=== PATIENT | female | born 1985 | race Caucasian/White ===

== ENCOUNTER 2019-07-13 05:41 | Inpatient (IN) | payer BC ==
[2019-07-13] MEDS ORDERED: cefOXitin 2 GM in Sodium Chloride 0.9% 50 ML IV ONE ×2 (06:34→08:00)
[2019-07-13] MEDS ORDERED: Celecoxib 200 MG Cap PO ONE ×2 (06:35→07:30)
[2019-07-13] MEDS ORDERED: Acetaminophen 325 MG Tab PO ONE ×2 (06:36→07:30)
[2019-07-13] MEDS ORDERED: Dextrose 5%-Lactated Ringers 1,000 ML IV SCH (07:00)
[2019-07-13] MEDS ORDERED: Succinylcholine 200 MG/10 ML MDV ONE (07:27)
[2019-07-13] MEDS ORDERED: Propofol 200 MG/20 ML SDV ONE (07:27)
[2019-07-13] MEDS ORDERED: Dexamethasone 4 MG/ML SDV ONE (07:27)
[2019-07-13] MEDS ORDERED: Neostigmine Methylsulfate 1 MG/ML 5 ML Syringe ONE (07:27)
[2019-07-13] MEDS ORDERED: Glycopyrrolate 0.2 MG/ML 5 ML MDV ONE (07:27)
[2019-07-13] MEDS ORDERED: fentaNYL 250 MCG/5 ML SDV ONE (07:27)
[2019-07-13] MEDS ORDERED: Meropenem 500 MG SDV ONE (07:27)
[2019-07-13] MEDS ORDERED: Bupivacaine 0.5%/EPINEPHrine 1:200,000 50 ML MDV ONE (07:27)
[2019-07-13] MEDS ORDERED: Rocuronium 50 MG/5 ML Vial ONE (07:27)
[2019-07-13] MEDS ORDERED: Ondansetron 4 MG/2 ML SDV ONE (07:27)
[2019-07-13] MEDS ORDERED: Lactated Ringers 1,000 ML ONE (07:29)
[2019-07-13] MEDS ORDERED: Acetaminophen 500 MG Tab PO ONE (07:30)
[2019-07-13] MEDS ORDERED: Ketamine 50 MG in Sodium Chloride 0.9% 49.5 ML IV SCH (08:00)
[2019-07-13] MEDS ORDERED: Ropivacaine 38 ML, dexAMETHasone 8 MG, EPINEPHrine 0.4 MG, Sodium Chloride 0.9% 39.6 ML NERVRT SCH ×4 (08:00)
[2019-07-13] MEDS ORDERED: Ketamine 500 MG/5 ML MDV IV SCH (08:00)
[2019-07-13] MEDS ORDERED: Magnesium Sulfate 2.2 GM in Sodium Chloride 0.9% 100 ML IV SCH (08:00)
[2019-07-13] MEDS ORDERED: Magnesium Sulfate 4.8 GM in Sodium Chloride 0.9% 250 ML IV ONE (08:00)
[2019-07-13] MEDS ORDERED: Lidocaine 1% with EPINEPHrine 1:100,000 50 ML MDV ONE (08:37)
[2019-07-13] MEDS ORDERED: Bupivacaine 0.5% 50 ML MDV ONE (08:37)
[2019-07-13] MEDS ORDERED: hydrOXYzine HCL 100 MG/2 ML SDV IM ONE (09:27)
[2019-07-13] MEDS ORDERED: HYDROmorphone 0.5 MG/0.5 ML Syringe IM ONE (09:42)
[2019-07-13] MEDS ORDERED: diphenhydrAMINE 50 MG/ML SDV IVPUSH PRN ×2 (10:08→11:17)
[2019-07-13] MEDS ORDERED: Ondansetron 4 MG/2 ML SDV IVPUSH PRN ×2 (10:08→11:17)
[2019-07-13] MEDS ORDERED: Naloxone 0.4 MG/ML SDV IVPUSH PRN (10:08)
[2019-07-13] MEDS ORDERED: diphenhydrAMINE 25 MG Cap PO PRN (10:08)
[2019-07-13] MEDS ORDERED: HYDROmorphone/Normal Saline 15 MG/30 ML PCA IV SCH (10:15)
[2019-07-13] MEDS ORDERED: Scopolamine 1.5 MG Transdermal Patch TOP SCH (11:00)
[2019-07-13] MEDS ORDERED: Naloxone 0.4 MG/ML SDV IV PRN (11:11)
[2019-07-13] MEDS ORDERED: Acetaminophen 500 MG Tab PO PRN (11:17)
[2019-07-13] MEDS ORDERED: hydrOXYzine HCL 100 MG/2 ML SDV IM PRN (11:17)
[2019-07-13] MEDS ORDERED: oxyCODONE 5 MG Tab PO PRN (11:17)
[2019-07-13] MEDS ORDERED: Cyclobenzaprine 10 MG Tab PO PRN (11:17)
[2019-07-13] MEDS ORDERED: Metoclopramide 10 MG/2 ML SDV IVPUSH PRN (11:17)
[2019-07-13] MEDS ORDERED: Labetalol 20 MG/4 ML Syringe IVPUSH PRN (11:17)
[2019-07-13] MEDS: SCOPOLAMINE PATCH CHECK TOP SCH (11:49)
[2019-07-13] MEDS ORDERED: Pantoprazole 40 MG Vial IVPUSH SCH (12:00)
[2019-07-13] MEDS: cefOXitin 2 GM in Premix Bag 1 BAG IV SCH ×2 (13:02→19:37)
[2019-07-13] MEDS: Acetaminophen 500 MG Tab PO SCH ×2 (13:02→21:24)
[2019-07-13] MEDS: Heparin Sodium 5,000 Units/ML Vial SUBCUT SCH (15:18)
[2019-07-13] MEDS ORDERED: MVI, Adult with Vitamin K 10 ML, Thiamine 200 MG, Chromium/Copper/Mang/Selen/Zn 1 ML in... IV SCH ×4 (16:00)
[2019-07-13] MEDS: Dextrose 5%-Lactated Ringers 1,000 ML IV SCH (21:33)
[2019-07-14] MEDS: cefOXitin 2 GM in Premix Bag 1 BAG IV SCH (02:21)
[2019-07-14] MEDS ORDERED: Iopamidol 612 MG/ML 50 ML SDV PO STA (02:34)
--- NOTE | 2019-07-14 03:18 | CRLCR ---
Indication: Christine-en-Y with small-bowel release Technique: KUB 2 view Comparison: CT abdomen pelvis July 12, 2019 Findings/Impression: : Two frontal views of the abdomen demonstrate midline laparotomy skin dianne. Oral contrast is seen within the proximal stomach and duodenum. Oral contrast also seen in the distal colon. No evidence for extravasation of oral contrast material on the static images. Few loops of mildly dilated small bowel in the mid abdomen. Surgical clips in right upper quadrant. Dictated by Antonieta Marcelo MD @ Jul 14 2019 3:13AM Signed by Dr. Antonieta Marcelo @ Jul 14 2019 3:15AM
[2019-07-14] MEDS: Heparin Sodium 5,000 Units/ML Vial SUBCUT SCH (04:53)
[2019-07-14] MEDS: Dextrose 5%-Lactated Ringers 1,000 ML IV SCH (04:56)
[2019-07-14] MEDS: Acetaminophen 500 MG Tab PO SCH (05:00)
[2019-07-14] MEDS ORDERED: Celecoxib 200 MG Cap PO SCH (09:00)
[2019-07-14] MEDS: HYDROmorphone 2 MG Tab PO PRN ×2 (09:12→13:24)
[2019-07-14] MEDS: SCOPOLAMINE PATCH CHECK TOP SCH (09:14)
[2019-07-14 11:15] VITALS: BP 108/64; PULSE 64
[2019-07-14] MEDS ORDERED: Pantoprazole 40 MG Tab.CR PO SCH (13:00)
--- NOTE | 2019-07-14 13:02 | DISCH ---
FINAL DIAGNOSES: 1. Partial small bowel obstruction associated with focal small bowel volvulus and probable chronic intussusception at jejunojejunostomy. 2. Elongated peritoneal lesion. SECONDARY DIAGNOSES: 1. Bariatric surgery status. 2. Elevated liver function tests of uncertain etiology. 3. History of recurrent pancreatitis. 4. History of depression and anxiety. OPERATIVE PROCEDURES: Done on 07/13/2019, exploratory laparotomy with lysis of adhesions: 1. Reduction of small bowel volvulus and closure of internal hernia. 2. Small bowel resection. 3. Secondary enteroenterostomy for re-establishment of Christine-en-Y small bowel anatomy. 4. Excision of elongated peritoneal lesion. 5. Placement of Interceed mesh to limit adhesion formation between pelvic and abdominal wall and underlying viscera. SUMMARY: This is a 34-year-old, status post Christine-en-Y gastric bypass presenting with a picture of partial small bowel obstruction. At the time of exploration, the patient was noted to have a focal volvulus secondary to the adhesions as well as boggy jejunojejunostomy consistent with some probable chronic intussusception at that level. The adhesions were lysed and the patient was also noted to have elongated peritoneal nodule measuring around 7 cm, likely some scar that was excised as well. The enteroenterostomy was resected and the small bowel anatomy re-established without significant change in her limb lengths. Postoperatively, the patient initially had quite a bit in the way of discomfort. This now appears to be well controlled and she will be discharged home. She will be sent home on her usual medications plus Dilaudid 2 to 4 mg p.o. q.4 hours p.r.n. pain #40 as well as Tylenol 650 mg p.o. q.6 hours p.r.n. pain. Her liver function tests both at the clinic on Monday as well as yesterday, which was Monday were somewhat elevated. They do appear to be improving this morning with the AST yesterday being 216, today 57; ALT yesterday 295, and today 211; and alkaline phosphatase yesterday was 181, and today 146. Total bilirubin has been normal on both days being 0.5 and 0.3 respectively. The patient will be sent home with a step 3 diet and to remain on that until her 1st appointment, which will be with Daxa Tavares at [facility] on 07/22/2019. She will have a CMP drawn at that time to evaluate the liver function tests status.
[2019-07-15] MEDS ORDERED: Cyanocobalamin (Vitamin B12) 1,000 MCG/ML SDV IM ONE (09:00)
--- NOTE | 2019-07-21 10:37 | OR ---
DATE OF PROCEDURE: 07/13/2019 SURGEON: See Dong MD PREOPERATIVE DIAGNOSIS: Partial small bowel obstruction. POSTOPERATIVE DIAGNOSES: 1. Partial small bowel obstruction associated with focal small bowel volvulus and probable chronic intussusception of jejunojejunostomy. 2. Elongated peritoneal lesion extending from the right lower quadrant anterior abdominal wall downward toward the underlying small bowel mesentery. OPERATIVE PROCEDURES: Exploratory laparotomy with lysis of adhesions and: 1. Reduction of small bowel volvulus and closure of internal hernia (46867). 2. Small bowel resection (18209). 3. Secondary enteroenterostomy for re-establishment of Christine-en-Y small bowel anatomy (74781). 4. Excision of elongated peritoneal lesion (76329). 5. Placement of Interceed mesh to limit recurrent adhesion formation between pelvic and abdominal wall and underlying viscera (92352). ANESTHESIA: General. INDICATIONS FOR PROCEDURE: This is a 34-year-old status post previous Christine-en-Y gastric bypass presenting with a picture of partial small bowel obstruction. The plan is to proceed with an exploratory laparotomy with reduction of any volvulus and small bowel resection as necessary. Potential risks including bleeding, infection, injury to underlying viscera, leaks from various GI tract closures, possible recurrence of the problem over time were all reviewed, and the patient wishes to proceed. DETAILS OF PROCEDURE: The patient was taken to the operating room after general endotracheal anesthesia was induced. A Astorga catheter was inserted which was removed at the end of the procedure and the abdomen prepped and draped. A midline incision from the umbilicus roughly a handsbreadth toward the xiphoid was made and carried down through the full-thickness abdominal wall. Upon entering the peritoneal cavity, the patient was noted to initially have area of small bowel volvulus with rotation of the jejunojejunostomy and portions of the common and Christine limb along with the biliopancreatic limb in a plane underneath the Christine limb when it passed upward toward the gastric pouch. This was reduced and at that point the small bowel was examined. It was noted that the jejunojejunostomy was quite dilated and boggy and this would be most likely related to some recurrent and chronic intussusception at that level. At that point, the decision was made to resect that anastomosis. The 3 components of the small bowel were then divided with the ADELA stapler as was the underlying mesentery and the small bowel specimen was delivered from the field. Initial small bowel continuity was established with anastomosis between the end of what had been the Christine limb to the beginning of the common limb with a [id number] enteroenterostomy using an Endo-ADELA 60 mm stapler. The common opening was closed transversely and the angles were anastomosed, mesenteric defect approximated with some 3-0 Vicryl stitch. Roughly 20 cm distal to that point, then the small bowel Christine-en-Y anatomy was re-established with an anastomosis between what had been the biliopancreatic limb and the small bowel roughly 20 cm distal to the initial anastomosis. This was accomplished with the same sequence of staplers. The angles anastomosed in this case were reinforced with some 3-0 Vicryl stitch, and to provide some permanency, the mesenteric defect was closed with a 2-0 silk stitch. The mesenteric defect underneath the Christine limb was also then closed off with a running 2-0 silk stitch. One additional finding was that of an elongated peritoneal lesion extending from the anterior abdominal wall downward toward the underlying small bowel mesentery. This was excised and measured 7 cm in total length. With no further problems noted, the abdomen was irrigated with antibiotic-containing saline solution. Interceed mesh was then placed underneath the incision and from there downward toward the pelvis to limit recurrent adhesion formation between those surfaces and the underlying viscera. The midline fascia was then approximated with #2 Vicryl stitch, subcutaneous tissue with 2 layers of 3-0 and 4-0 Vicryl stitch deep and dianne for the skin. The fascia had been anesthetized with 0.5% Marcaine mixed with lidocaine and bilateral transversus abdominis plane blocks were also then placed. The patient was taken to the recovery room in satisfactory condition. There were no evident complications. See Dong MD /[id number]
== END 2019-07-14 13:40 | disposition home or self-care (01) | DRG 220 ==
LOC: JP.SDSSCHI 05:41 → JP.SDS 05:41 → EDSTATUS 08:00 → JP.MS 09:15
PROVIDERS: ADMIT Surgery; ATTEND Surgery
PROC: 0D160ZA Bypass Stomach to Jejunum, Open Approach (ICD-10-PCS; principal; 2019-07-13)
PROC: 0DS80ZZ Reposition Small Intestine, Open Approach (ICD-10-PCS; 2019-07-13)
PROC: 0DB80ZZ Excision of Small Intestine, Open Approach (ICD-10-PCS; 2019-07-13)
PROC: 0DBW0ZZ Excision of Peritoneum, Open Approach (ICD-10-PCS; 2019-07-13)
PROC: 3E0M05Z Introduction of Adhesion Barrier into Peritoneal Cavity, Open Approach (ICD-10-PCS; 2019-07-13)
DX: K95.89 Other complications of other bariatric procedure (principal); K56.2 Volvulus; K66.0 Peritoneal adhesions (postprocedural) (postinfection); R74.8 Abnormal levels of other serum enzymes; K86.1 Other chronic pancreatitis; F41.9 Anxiety disorder, unspecified; F32.9 Major depressive disorder, single episode, unspecified; K56.1 Intussusception; Y83.8 Other surgical procedures as the cause of abnormal reaction of the patient, or of later complication, without mention of misadventure at the time of the procedure; R22.2 Localized swelling, mass and lump, trunk; Z98.84 Bariatric surgery status
CPT/HCPCS: 36415; 74240; 80053; 82150; 83690; 85027; 88304; 88307; 94762; A9270-GY; C9113; J0171; J0330; J0694; J1100; J1170; J1644; J2020; J2185; J2405; J2704; J2710; J2765; J2795; J3010; J3410; J3411; J3475; J3490; J7050; J7120; J7121; Q9967

== ENCOUNTER 2019-11-05 05:33 | Inpatient (IN) | payer BC ==
[~2019-11-05 05:33] MED LIST: Acetaminophen 500 MG Tab PO ONE; Celecoxib 200 MG Cap PO ONE; Gabapentin 300 MG Cap PO ONE; Scopolamine 1.5 MG Transdermal Patch TRDERM SCH
[2019-11-05] MEDS ORDERED: Dextrose 5%-Lactated Ringers 1,000 ML IV SCH (06:00)
[2019-11-05] MEDS ORDERED: Meropenem 500 MG SDV ONE (06:30)
[2019-11-05] MEDS ORDERED: Bupivacaine 0.5% 50 ML MDV ONE (06:30)
[2019-11-05] MEDS ORDERED: Lidocaine 1% with EPINEPHrine 1:100,000 50 ML MDV ONE (06:30)
[2019-11-05] MEDS ORDERED: fentaNYL 250 MCG/5 ML SDV ONE (07:09)
[2019-11-05] MEDS ORDERED: Glycopyrrolate 0.2 MG/ML 5 ML MDV ONE (07:09)
[2019-11-05] MEDS ORDERED: Propofol 200 MG/20 ML SDV ONE (07:09)
[2019-11-05] MEDS ORDERED: Rocuronium 50 MG/5 ML Vial ONE (07:09)
[2019-11-05] MEDS ORDERED: Ondansetron 4 MG/2 ML SDV ONE (07:09)
[2019-11-05] MEDS ORDERED: Neostigmine Methylsulfate 1 MG/ML 5 ML Syringe ONE (07:09)
[2019-11-05] MEDS ORDERED: Dexamethasone 4 MG/ML SDV ONE (07:09)
[2019-11-05] MEDS ORDERED: ceFAZolin 2 GM in Premix Bag 1 BAG IV ONE (07:15)
[2019-11-05] MEDS ORDERED: Ketamine 500 MG/5 ML MDV IV SCH (07:30)
[2019-11-05] MEDS ORDERED: Ketamine 50 MG in Sodium Chloride 0.9% 49.5 ML IV SCH (07:30)
[2019-11-05] MEDS ORDERED: diphenhydrAMINE 50 MG/ML SDV IVPUSH PRN (08:04)
[2019-11-05] MEDS ORDERED: Ondansetron 4 MG/2 ML SDV IVPUSH PRN ×2 (08:04→10:28)
[2019-11-05] MEDS ORDERED: Naloxone 0.4 MG/ML SDV IVPUSH PRN (08:04)
[2019-11-05] MEDS ORDERED: diphenhydrAMINE 25 MG Cap PO PRN (08:04)
[2019-11-05] MEDS ORDERED: Naloxone 0.4 MG/ML SDV IV PRN (08:07)
[2019-11-05] MEDS: HYDROmorphone/Normal Saline 15 MG/30 ML PCA IV PRN (08:15)
[2019-11-05] MEDS ORDERED: hydrOXYzine HCL 100 MG/2 ML SDV IM ONE (09:17)
[2019-11-05] MEDS ORDERED: hydrOXYzine HCL 100 MG/2 ML SDV IM PRN (10:28)
[2019-11-05] MEDS: SCOPOLAMINE PATCH CHECK TOP SCH (11:27)
[2019-11-05] MEDS: Dextrose 5%-Lactated Ringers 1,000 ML IV SCH ×3 (11:27→21:26)
[2019-11-05] MEDS: Sodium Ferric Gluconate Cmplex 250 MG in Sodium Chloride 0.9% 100 ML IV SCH (11:44)
[2019-11-05] MEDS: Cyclobenzaprine 10 MG Tab PO PRN (11:55)
[2019-11-05] MEDS: ceFAZolin 2 GM in Premix Bag 1 BAG IV SCH ×2 (14:16→21:26)
[2019-11-05] MEDS: Acetaminophen 325 MG Tab PO SCH ×2 (14:42→21:25)
[2019-11-06] MEDS: Acetaminophen 325 MG Tab PO SCH ×4 (02:12→19:43)
[2019-11-06] MEDS: ceFAZolin 2 GM in Premix Bag 1 BAG IV SCH (06:15)
[2019-11-06] MEDS: Dextrose 5%-Lactated Ringers 1,000 ML IV SCH ×2 (06:15→15:11)
[2019-11-06] MEDS ORDERED: Ondansetron 4 MG Tab.DIS PO PRN (07:40)
[2019-11-06] MEDS: Cyclobenzaprine 10 MG Tab PO PRN ×2 (07:43→15:18)
[2019-11-06] MEDS: SCOPOLAMINE PATCH CHECK TOP SCH (08:39)
[2019-11-06] MEDS: Sodium Ferric Gluconate Cmplex 250 MG in Sodium Chloride 0.9% 100 ML IV SCH (10:51)
[2019-11-06] MEDS: HYDROmorphone/Normal Saline 15 MG/30 ML PCA IV PRN (13:56)
[2019-11-06] MEDS ORDERED: methylPREDNISolone Sodium Succinate 125 MG/2 ML SDV IVPUSH PRN (14:00)
--- NOTE | 2019-11-06 15:24 | PN ---
DATE OF SERVICE: 11/06/2019 SUBJECTIVE: Nazia is postoperative day #1. She states her pain is controlled. She is having some muscle spasms. Up, ambulating. Vital signs have been stable. Oral intake 260. Urine output 1650 prior to Astorga catheter being removed. She has not voided since the catheter has been removed early a.m. REVIEW OF SYSTEMS: Remainder of review of systems negative for any pertinent positives and negatives. OBJECTIVE: GENERAL: Nazia Newman is a pleasant 34-year-old female, alert and orientated. Color pale. VITAL SIGNS: TPR at 0623, 98.7; 72; 16; blood pressure 116/65. HEENT: Negative. NECK: Supple. HEART: Regular rate and rhythm. LUNGS: Clear. ABDOMEN: Dressings dry and intact. Abdominal binder is on. EXTREMITIES: Without peripheral edema. ASSESSMENT: 1. Exploratory laparotomy with lysis of adhesions. 2. Repair of recurrent incarcerated incisional hernia with mesh. 3. Repair of umbilical hernia with mesh. 4. Reduction of small bowel volvulus and closure of internal hernia. 5. Placement of Vicryl mesh. POSTOPERATIVE DIAGNOSIS: 1. Incarcerated incisional hernia. 2. Non incarcerated umbilical hernia. 3. Focal small bowel volvulus. 4. Date of surgery: 11/05/2019. Surgeon: See Dong MD. PLAN: 1. Decrease IV of D5LR to 100 mL per hour. 2. May shower. 3. Step 3 gastric bypass diet. 4. Flexeril 10 mg q.6 hours p.r.n. muscle spasm. 5. Continue AWS DEVELOPER and continuous pulse ox for pain management today. 6. We will evaluate p.r.n. or in a.m. Daxa Tavares PA-C /[id number]
[2019-11-07] MEDS: Acetaminophen 325 MG Tab PO SCH ×4 (01:16→20:44)
[2019-11-07] MEDS: Dextrose 5%-Lactated Ringers 1,000 ML IV SCH (01:16)
[2019-11-07] MEDS: Docusate Sodium 100 MG Cap PO SCH ×2 (08:40→20:44)
[2019-11-07] MEDS: Bisacodyl 5 MG Tab PO SCH ×2 (08:41→20:44)
[2019-11-07] MEDS: Cyclobenzaprine 10 MG Tab PO PRN ×2 (08:41→18:25)
[2019-11-07] MEDS: SCOPOLAMINE PATCH CHECK TOP SCH (09:37)
[2019-11-07] MEDS: HYDROmorphone 2 MG Tab PO PRN ×3 (10:32→20:43)
--- NOTE | 2019-11-07 13:43 | PN ---
DATE OF SERVICE: 11/07/2019 SUBJECTIVE: Nazia is postoperative day 2. She reports that her pain is controlled. She has been up, ambulating, feeling better today. Vital signs have been stable. Oral intake adequate at 900 and urine output was 4000. She is voiding without difficulty after the Astorga catheter was removed yesterday morning. REVIEW OF SYSTEMS: Remainder of review of systems negative for any pertinent positives and negatives. OBJECTIVE: GENERAL: Nazia Newman is a pleasant 34-year-old female. She is alert and orientated. VITAL SIGNS: TPR at 0723 is 98.8, 79, 16. Blood pressure is 99/52. HEENT: Negative. NECK: Supple. HEART: Regular rate and rhythm. LUNGS: Clear. ABDOMEN: Dressings dry and intact. Aquacel dressing is on. She has a pressure dressing over former hernia site. EXTREMITIES: Without peripheral edema. ASSESSMENT: 1. Exploratory laparotomy with lysis of adhesions. 2. Repair of recurrent incarcerated incisional hernia with mesh. 3. Repair of umbilical hernia with mesh. 4. Reduction of small bowel volvulus and closure of internal hernia. 5. Placement of Vicryl mesh. POSTOPERATIVE DIAGNOSES: 1. Incarcerated incisional hernia. 2. Non-incarcerated umbilical hernia. 3. Focal small bowel volvulus. Date of surgery 11/05/2019. Surgeon: See Dong MD. PLAN: 1. Discontinue DOCTOR OF VETERINARY MEDICINE, continuous pulse ox. 2. Dilaudid 2 mg 1 to 2 every 4 hours p.r.n. pain. 3. Saline lock IV. 4. Colace 100 mg p.o. b.i.d. 5. Dulcolax 10 mg tabs 1 b.i.d. scheduled until patient has bowel movement, then discontinue. 6. Continue good pulmonary toilet. 7. Plan discharge in aBrit Tavares PA-C /[id number]
[2019-11-08] MEDS: HYDROmorphone 2 MG Tab PO PRN ×2 (00:47→06:10)
[2019-11-08] MEDS: Acetaminophen 325 MG Tab PO SCH ×2 (02:42→07:21)
[2019-11-08] MEDS: Cyclobenzaprine 10 MG Tab PO PRN (03:33)
[2019-11-08 07:30] VITALS: BP 129/71; PULSE 76
[2019-11-08] MEDS ORDERED: Magnesium Hydroxide 400 MG/5 ML Susp 30 ML Cup PO PRN (09:00)
[2019-11-08] MEDS: Bisacodyl 5 MG Tab PO SCH (09:25)
[2019-11-08] MEDS: Docusate Sodium 100 MG Cap PO SCH (09:25)
--- NOTE | 2019-11-08 12:00 | DISCH ---
ADMISSION DIAGNOSES: 1. Large incisional hernia. 2. Single-port Christine-en-Y gastric bypass surgery. 3. Unspecified surgical malabsorption. 4. B12 deficiency. DISCHARGE DIAGNOSES: 1. Exploratory laparotomy with: a. Lysis of adhesions. b. Repair of recurrent incarcerated incisional hernia with mesh. c. Repair of umbilical hernia with mesh. d. Reduction of small bowel volvulus and closure of internal hernia. e. Replacement of Vicryl mesh. POSTOPERATIVE DIAGNOSES: 1. Incarcerated incisional hernia. 2. Non-incarcerated umbilical hernia. 3. Focal small bowel volvulus. Date of surgery: 11/05/2019. Surgeon: See Dong MD. HISTORY: Nazia Newman is a 34-year-old female with a large incisional hernia. After preoperative evaluation and discussion of possible risks and possible complications, she wished to proceed with surgical procedure. HOSPITAL COURSE: Nazia had her surgery on 11/05/2019. She had no operative complications. On postop day #1, she was started on step 3 gastric bypass diet. IV was decreased to 100 mL per hour and on postop day #2, she was started on oral pain medication, was able to shower, and was started on bowel stimulation and oral pain medication. On postop day #3, activity was good. Vital signs were stable. Afebrile. Pain was well managed. Activity was good and able to be discharged to home. PHYSICAL EXAMINATION: GENERAL: Nazia Newman is a pleasant 34-year-old female, height is 5 feet 7 inches, weight is 162 pounds. VITAL SIGNS: TPR at 0726, 97.8; 76; 18; blood pressure 129/71. HEENT: Negative. NECK: Supple. HEART: Regular rate and rhythm. LUNGS: Clear. ABDOMEN: Aquacel dressing is on. Abdominal binder is on. EXTREMITIES: Without peripheral edema. DISPOSITION: Discharged to home. CONDITION: Stable and improving. FOLLOWUP APPOINTMENT: Daxa Tavares PA-C, on 11/14/2019 at 9:15 a.m. HOME MEDICATIONS: 1. Dilaudid 2 to 4 mg every 4 hours p.r.n. pain #42. 2. Flexeril 10 mg q.6 hours p.r.n. muscle spasms #30. 3. Colace 100 mg p.o. b.i.d. #100. 4. Zofran ODT 4 mg every 4 hours p.r.n. nausea #30. She is to resume home medications and vitamins as she took prior to hospitalization. DIET AFTER DISCHARGE: Usual diet as tolerated. Drink 8 to 10 glasses of water a day. ACTIVITY: As tolerated. No lifting greater than 10 pounds for 6 weeks. Driving: Do not drive for 1 week and while on pain medication. Shower/bathing: May shower. Wound incision care: Keep operative site clean and dry. Wear a pressure dressing over the former hernia site and wear abdominal binder for 6 weeks and longer if needed. Notify provider if any fever, increased pain, swelling, redness, drainage, nausea, or vomiting. SPECIAL INSTRUCTION: Use incentive spirometer 10 times every hour while awake for 1 week. Take off Aquacel dressing on 11/11/2019.
--- NOTE | 2019-11-15 14:49 | OR ---
DATE OF PROCEDURE: 11/05/2019 SURGEON: See Dong MD PREOPERATIVE DIAGNOSIS: Large incisional hernia. POSTOPERATIVE DIAGNOSES: 1. Large incarcerated incisional hernia. 2. Non-incarcerated umbilical hernia. 3. Focal small bowel volvulus. OPERATIVE PROCEDURE: Exploratory laparotomy with lysis of adhesions and: 1. Repair of incarcerated incisional hernia with mesh (46202, 97762). 2. Repair of non-incarcerated umbilical hernia with mesh (51441). 3. Reduction of small bowel volvulus and closure of internal hernia (58800). 4. Placement of Vicryl mesh to limit recurrent adhesion formation between pelvic and abdominal wall and underlying viscera (80175). ANESTHESIA: General. RPG DEVELOPER: Daxa Tavares PA-C INDICATIONS FOR PROCEDURE: This is a 34-year-old presenting with a large incisional hernia centered in the epigastrium. Plan is to proceed with an open repair of this with mesh technique. Potential risks of the procedure including bleeding, infection, injury to underlying viscera, problems with the hernia recurring or the mesh becoming infected were all reviewed, and the patient wishes to proceed. DETAILS OF PROCEDURE: The patient was taken to the operating room and placed in the supine position. A midline incision from just below the xiphoid to the umbilicus was made and carried down through the skin and subcutaneous tissue. Hernia sac was then encountered, and this was dissected down to the level of the fascia in all directions. The hernia sac was then opened. It was noted to have some incarcerated transverse colon and omentum adherent within the sac, and these were dissected free and returned back into the abdomen. The hernia sac was then resected flush with the fascia. The patient was also noted to have a separate umbilical hernia. A portion of the subperitoneum was then resected, along with the adjacent incisional hernia. Inspection of the small bowel at this point showed a focal small bowel volvulus with rotation of the jejunojejunostomy underneath the mesentery of the Christine limb. This was reduced and the underlying mesentery then closed with 2-0 silk stitch. The bowel otherwise at this point appeared to be unremarkable with the patient being status post Christine-en-Y gastric bypass. At this point, a Ventralight ST hernia patch measuring 19.6 x 24.6 cm was selected. The patient had a broad opening of the fascia to a large extent in the transverse direction. Given this, the mesh was oriented with the long axis in the transverse orientation. At 5 cm intervals around the circumference, 2-0 Vicryl stitches were placed on the polypropylene side of the mesh. Stab wounds were then made in the abdominal wall for the sutures to be pulled up, thus fixing the mesh well away from the fascial edges. Once the sutures were in place, the mesh was soaked in antibiotic-containing saline solution and placed in an intraabdominal location. The left side of the abdominal sutures were then pulled up. Following this, a Vicryl mesh was then placed underneath the area of the mesh, and from there, down into the pelvis to limit recurrent adhesion formation, and the remaining sutures were then pulled up, thus fixing the mesh in position. The midline fascia including the umbilical hernia site was then closed in the vertical midline with #2 Vicryl stitch. Skin and subcutaneous tissue were then approximated with some 3-0 and 4-0 Vicryl stitch deep and dianne for the skin. Prior to closure, bilateral transversus abdominis plane blocks were placed, and the incision was anesthetized with 1% lidocaine mixed with Marcaine. The patient was taken to the recovery room in satisfactory condition. There were no evident complications. Physician diversional therapist's assistant, Daxa Tavares, played an essential role in assisting in this case, helping to position the patient, retract structures as needed, as well as suturing and cutting sutures when indicated. Her presence improved patient safety and decreased the operative time. See Dong MD /[id number]
== END 2019-11-08 10:00 | disposition home or self-care (01) | DRG 223 ==
LOC: JP.SDS 05:33 → EDSTATUS 08:15 → JP.MS 10:17 → JP.2SS 10:17
PROVIDERS: ADMIT Surgery; ATTEND Surgery
PROC: 0DS80ZZ Reposition Small Intestine, Open Approach (ICD-10-PCS; principal; 2019-11-05)
PROC: 0WUF0JZ Supplement Abdominal Wall with Synthetic Substitute, Open Approach (ICD-10-PCS; 2019-11-05)
PROC: 3E0M05Z Introduction of Adhesion Barrier into Peritoneal Cavity, Open Approach (ICD-10-PCS; 2019-11-05)
PROC: 0WUF0JZ Supplement Abdominal Wall with Synthetic Substitute, Open Approach (ICD-10-PCS; 2019-11-05)
DX: K43.0 Incisional hernia with obstruction, without gangrene (principal); K56.2 Volvulus; K42.9 Umbilical hernia without obstruction or gangrene; E53.8 Deficiency of other specified B group vitamins; E55.9 Vitamin D deficiency, unspecified; E60 Dietary zinc deficiency; E61.0 Copper deficiency; E50.9 Vitamin A deficiency, unspecified; K91.2 Postsurgical malabsorption, not elsewhere classified; E53.9 Vitamin B deficiency, unspecified; Z90.49 Acquired absence of other specified parts of digestive tract; Z98.84 Bariatric surgery status
CPT/HCPCS: 81025; 88302; 94762; A9270-GY; C1713; C1781; J0171; J0690; J1100; J1170; J2020; J2185; J2405; J2704; J2710; J2795; J2916; J2930; J3010; J3410; J3490; J7050; J7121